=== PATIENT | female | born 1980 | race African-American/Black ===

== ENCOUNTER 2024-11-18 23:56 | Emergency (ER) | payer OTHER, SELFPAY ==
--- NOTE | ~2024-11-18 | XR_ITS ---
CLINICAL HISTORY: cough EXAM: Two views of the chest. COMPARISON: None FINDINGS: Normal cardiac, mediastinal, and hilar contours. Normal heart size. No pleural effusion or pneumothorax. Lungs are clear. No acute bone finding. IMPRESSION: 1. No acute cardiopulmonary process demonstrated. This document has been electronically signed by: Michael Paula MD on 11/19/2024 01:25:00
--- NOTE | 2024-11-19 | ECG_ITS ---
Test Reason : CP Blood Pressure : */* mmHG Vent. Rate : 71 BPM Atrial Rate : 71 BPM P-R Int : 156 ms QRS Dur : 80 ms QT Int : 380 ms P-R-T Axes : 0 33 -13 degrees QTcB Int : 412 ms Normal sinus rhythm Normal ECG No previous ECGs available Referred By: Generic ED Physician Electronically Signed By: Pedro Elias
[2024-11-19 00:28] VITALS: BP 99/68; PULSE 76; RESP 18; TEMP 36.9; O2SAT 99; BMI 27.1
[2024-11-19 00:58] LABS: IDNOW Serial# 55D5AD1C; Strep A Nucleic Acid Negative (Negative)
[2024-11-19 01:24] LABS: Resp Syncy Virus RNA Qual PCR NEGATIVE (Negative); SARS COV2 PCR INHOUSE NEGATIVE (Negative)
--- NOTE | 2024-11-19 04:47 | ED_ITS ---
HPI - URI/Sore Throat General Chief Complaint: Upper Respiratory Symptoms Stated Complaint: Cough Time Seen by Provider: 11/19/24 04:37 Source: patient Mode of arrival: ambulatory Limitations: no limitations History of Present Illness ED Provider: Dr. Bertha Gavin HPI Narrative: Patient comes to the emergency room complaining cough, sore throat, chest pain with coughing. Patient reports sick contacts at work, denies fever and chills Related Data Allergies Allergy/AdvReac Type Severity Reaction Status Date / Time No Known Allergies Allergy Verified 11/19/24 00:31 Review of Systems Review of Systems: Constitutional : No Weight loss, No Fever, No Chills, No Night Sweats, No Fatigue, No Malaise ENT/Mouth : No Hearing loss, No Ear Pain, No Nasal Congestion, No Sinus Pain, No Hoarseness, complaining of sore throat, No Rhinorrhea, No Swallowing Difficulty Eyes: No Eye Pain, No Swelling, No Redness, No Foreign Body, No Discharge, No Vision Changes Cardiovascular : No Chest Pain, No SOB, No Dyspnea on Exertion, No Orthopnea, No Edema, No Palpitations Respiratory : Complaining of dry cough, no wheezing, no shortness of breath Gastrointestinal : No Nausea, No Vomiting, No Diarrhea, No Constipation, No abdominal Pain, No Hematochezia, No Melena Genitourinary : no irregular bleeding, No Dysuria, No Urinary Frequency, No Hematuria, No Urinary Incontinence, No Urgency, No Flank Pain, No Urinary Flow Changes, No Hesitancy Musculoskeletal : No joint pain, No Myalgias, No Joint Swelling Skin : No Skin Lesions, No rash Neuro : No Weakness, No Numbness, No Paresthesias, No Loss of Consciousness, No Dizziness, No Headache Psych : No Anxiety/Panic, No Depression, No SI/HI/AH/VH, No Social Issues, Heme/Lymph: No Bruising, No Bleeding,No Lymphadenopathy Endocrine : No Polyuria, No Polydipsia, No Temperature Intolerance Physical Exam Exam: Exam: Appearance: Alert. Oriented X3. No acute distress. Well-appearing Eyes: Pupils equal, round and reactive to light. ENT: Pharynx normal, not erythematous, no abscesses or exudates, uvula midline Neck: Normal inspection. Neck supple. No lymph nodes noted. No crepitus CVS: Normal heart rate and rhythm. Pulses normal. Normal S1 and S2 Respiratory: No respiratory distress. Breath sounds normal. No Wheezing. No rales Abdomen: Soft and nontender. No rigidity. No distention. Skin: Skin warm and dry. Normal skin color. Normal skin turgor. Extremities: No lower extremity edema. No Lacerations. No Rash Neuro: Oriented X 3. No motor deficit. No sensory deficit. Moving all extremities. No slurred speech. CN 2 through 12 grossly intact Psych: calm, cooperative, normal affect Vital Signs: Vital Signs: Last Vital Signs Temp 98.5 F 11/19/24 00:28 Pulse 76 11/19/24 00:28 Resp 18 11/19/24 00:28 BP 99/68 11/19/24 00:28 Pulse Ox 99 11/19/24 00:28 O2 Del Method Room Air 11/19/24 00:28 BMI result Body Mass Index 27.1 Medical Decision Making Medical Decision Making [facility] Narrative: Patient was given 1 dose of p.o. Decadron to help her with the symptoms. Patient likely has viral pharyngitis My interpretation of labs: Negative for strep, influenza, RSV and COVID Chest x-ray does not show any acute abnormality EKG: Normal sinus rhythm, heart rate 71, no ST segment depression or elevation, no T-wave inversion, QTC 412 Differential Diagnosis Differential Diagnoses: The differential diagnosis associated with the presentation includes (As above) Lab Data [facility] Lab Attestation statement: I reviewed the patient's lab results. Labs: Lab Results 11/19/24 Range/Units 00:43 Influenza Type A (PCR) NEGATIVE (Negative) Influenza Type B (PCR) NEGATIVE (Negative) RSV RNA Qual (PCR) NEGATIVE (Negative) SARS-CoV-2 RNA (RT-PCR) NEGATIVE (Negative) S. pyogenes GrpA TRAVON Negative (Negative) Independent Interpretation I performed an independent interpretation of an: Plain X-Ray Radiology Impression Discussion of test interpretation with radiology: I have reviewed the radiologist's reading. Radiologist Impression: Normal cardiac, mediastinal, and hilar contours. Normal heart size. No pleural effusion or pneumothorax. Lungs are clear. No acute bone finding. Discharge Plan Discharge Clinical Impression: Upper respiratory infection Patient Disposition: Home, Self-Care Print Language: Uzbek
[2024-11-19 05:00] VITALS: BP 99/68; PULSE 76; RESP 18; TEMP 36.9; O2SAT 99
--- OUTSIDE RECORDS SUMMARY | 2024-11-19 05:12 | XMS_ITS | Clinical Summary ---
Author Organization [facility] Address [address] [place] [address] Phone Care Team Providers Care Infrastructure Solutions Architect Name Role Phone Dre, Trice Davenport [facility] Primary Care Provi chang Allergies Active Allergy Reactions Criticality Noted Date Comments Levonorgestrel-Ethinyl Estrad 2019 Medications norethindrone (ARIADNA,CAROL,H EATHER,MICRONOR ) 0.35 mg tablet Take 1 tablet (0.35 mg total) by mouth 1 (one) time each day. For 360 days 11/08/2019 Active ibuprofen (ADVIL,MOTRIN) 400 mg tablet Take 1 tablet (400 mg total) by mouth every 6 (six) hours if needed. Active hydrOXYzine pamoate (VISTARIL) 25 mg capsule Take 1 capsule (25 mg total) by mouth. 12/10/2023 Active cholecalciferol (VITAMIN D-3) 25 mcg (1,000 unit) tablet Take 1 tablet (1,000 Units total) by mouth. 12/06/2023 Active cetirizine (ZyrTEC) 10 mg tablet Take 1 tablet (10 mg total) by mouth. 12/02/2023 Active norethindrone (ARIADNA,CAROL,H EATHER,MICRONOR ) 0.35 mg tablet Take 1 tablet (0.35 mg total) by mouth 1 (one) time each day. 90 tablet 3 06/22/2024 Active Active Problems Problem Noted Date Diagnosed Date ASCUS with positive high risk HPV cervical 12/02 Overview (03/15/2024): Colpo neg 11/2019 Situational anxiety 11/25/2019 Beta thalassemia minor 10/18/2016 Marijuana use 02/17/2015 Chronic low back pain 11/23/2014 Immunizations Name Administration Dates Next Due Hepatitis A-Hepatitis B Adult (Twinrix) 18yo and older 2001 Influenza trivalent, 0.5mL, preservative free (Fluarix; FluLaval; Fluzone) ages 6mo and older (Afluria) 3 years and older 02/17/2015 Tdap Tetanus diptheria acell ular pertussis (Boostrix; Adacel) 7yo and older 12/02/2023 Surgical History Surgery Date Site/Laterality Comments OTHER SURGICAL HISTORY PROCEDURE: DENIES PREVIOUS SURGERY Medical History Medical History Date Comments Patient denies medical problems DX:Patient denies medical problems Family History Medical History Relation Name Comments Other: trauma related Father Breast cancer Mother Diabetes Mother Hypertension Mother Breast cancer Mother's Sister Other: autism Mother's side 1 nephew Breast cancer Mother's side 2 Aunt Mothers aun t Colon cancer Neg Hx Ovarian cancer Neg Hx Uterine cancer Neg Hx Relation Name Status Comments Brother Alive Father Maternal Grandfather Maternal Grandmother Mother Alive Mother's Sister Alive Mother's side 1 Mother's side 2 Aunt Paternal Grandfather Paternal Grandmother Sister Alive Social History Tobacco Use Types Packs/Day Years Used Date Smoking Tobacco: Some Days Smokeless Tobacco: Never Alcohol Use Standard Drinks/Week Comments Yes 0 (1 standard drink = 0.6 oz pur e alcohol) Comments No Sex and Gender Information Value Date Recorded Sex Assigned at Not on file Legal Sex Female 4:23 AM EST Gender Identity Not on file Sexual Orientation Not on file Obstetrics History Last Filed Vital Signs Vital Sign Reading Time Taken Comments Blood Pressure 123/78 06/22/2024 10:58 AM EDT Pulse 64 06/22/2024 10:58 AM EDT Temperature - - Respiratory Rate - - Oxygen Saturation - - Inhaled Oxygen Concentration - - Weight 81.6 kg (180 lb) 07/02/2024 11:02 AM EDT Height 172.7 cm (5' 8 ) 07/02/2024 11:02 AM EDT Body Mass Index 27.37 07/02/2024 11:02 AM EDT Plan of Treatment Upcoming Encounters Date Type Department Care Team (Late st Contact Info) Description 01/03/2025 1:00 PM EDT [facility]ointment [facility] [address] [id number] Health Maintenance Due Date Last Done Comments Pneumococcal Vaccine: Pediatrics (0 to 5 Years) and At-Risk Patients (6 to 49 Years) (1 of 2 - PCV) 2001 Hepatitis B Vaccines (2 of 3 - Hep B Twinrix 3-dose series) 05/13/2001 2001 Social Influencers of Health Screening 03/10/2022 COVID-19 Vaccine (1 - 2023-2 5 season) 2023 Depression Screening 04/07/2024 Cholesterol Screening (Lipid Panel) 11/24/2024 11/25/2019 Influenza Vaccine (#1) 2024 4, 03/09/2018, 02/17/2015 Breast Cancer Screening 07/02/2026 07/03/19 25, 12/12/2023 Cervical Cancer Screening: HPV 06/22/2029 0 06/22/2024, 11/08/2019 DTaP,Tdap,and Td Vaccines (2 - Td or Tdap) 12/01/2033 12/02/2023 Hepatitis A Vaccines Aged Out 2001 No long er eligible based on patient's age to complete this topic HIV Screening Completed 06/22/2024, 11/08/2019 Hepatitis C Screening Completed 06/22/2024 HIB Vaccines Aged Out No longer eligi ble based on patient's age to complete this topic HPV Vaccines Aged Out No longer eligi ble based on patient's age to complete this topic IPV Vaccines Aged Out No longer eligi ble based on patient's age to complete this topic MMR Vaccines Aged Out No longer eligi ble based on patient's age to complete this topic Meningococcal ACWY Vaccine Aged Out N o longer eligible based on patient's age to complete this topic Meningococcal B Vaccine Aged Out No l onger eligible based on patient's age to complete this topic RSV Immunization Patients Under 20 months Aged Out No longer eligible b ased on patient's age to complete this topic Varicella Vaccines Aged Out No longer eligible based on patient's age to complete this topic Procedures Procedure Name Priority Date/Time Associated Diagnosis Comments MG MAMMO DIGITAL DIAGNOSTIC LEFT Routine 07/02/2024 11:37 AM EDT Abnormality of left breast on screening mammogram HEPATITIS C ANTIBODY Routine 06/22/2024 11:30 AM EDT Encounter for screening for viral disease HIV 1, 2 ANTIBODY, P24 ANTIGEN WITH REFLEX TO DIFFERENTIATION Routine 06/22/2024 11:30 AM EDT Encounter for screening for viral disease HPV WITH REFLEX GENOTYPE Routine 06/22/2024 11:21 AM EDT Encounter for annual physical examination excluding gynecological examination in a patient older than 17 years LIPID PANEL Routine 11/25/2019 from Last 3 Months or Most Recently Relevant to Health Maintenance Results * MG Mammo Digital Diagnostic Left (07/02/2024 11:37 AM EDT) Anatomical Region Laterality Modality Breast Left Mammography 07/02/2024 11:1 2 AM EDT Impressions 07/02/2024 11:22 AM EDT Decreased size and conspicuity of the asymmetry posteriorly in the left breast in the nipple line, seen on MLO projection only, strongly indicating benignity. Bilateral mammography in 6 months, which will serve as additional short-term follow-up of left breast and annual mammography of the right breast, is recommended. BI-RADS CATEGORY: 3 - PROBABLY BENIGN RECOMMENDATION: Short Interval Follow-up is recommended for bilateral breasts in 6 months. Mammo Location: [facility], [facility], [address] [place] [address] -------- FINAL REPORT -------- Dictated By: Jhonny Vazquez Dictated Date: 07/02/2024 11:12 ET Assigned Physician: Jhonny Vazquez Reviewed and Electronically Signed By: Jhonny Vazquez Signed Date: 07/02/2024 11:22 ET Workstation ID: [id number] Transcribed By: Self Edit Transcribed Date: 07/02/2024 11:12 ET Narrative 07/02/2024 11:22 AM EDT CLINICAL: The patient is a 44 years Female. Screening mammography performed 12/12/2023, as well as on supplementary imaging performed 12/30/2023, demonstrated a 12 mm diameter asymmetry posteriorly in the left breast in the nipple line, seen on MLO projection only. The patient now presents for supplementary imaging. COMPARISON: 12/30/2023 and 12/12/2023 TECHNIQUE: Full-field digital mammography of the left breast consisting of tomosynthesis in MLO and CC projection is performed in the [employer] 2000-D unit. Computer aided detection utilizing the iCAD system was utilized. FINDINGS: The breasts are again seen to be composed of a combination of fatty and very dense fibroglandular elements. The asymmetry posteriorly in the left breast in the nipple line seen on MLO projection only, is less conspicuous than on prior studies. There is no cluster of microcalcifications, mass, or area of architectural distortion. There is no skin thickening or nipple retraction. TISSUE DENSITY: There are scattered areas of fibroglandular density. (BI-RADS category B) Procedure Note Jhonny Vazquez MD - 07/02/2024 CLINICAL: The patient is a 44 years Female. Screening mammographyperformed 12/12/2023, as well as on supplementary imaging performed12/30/2023, demonstrated a 12 mm diameter asymmetry posteriorly in the leftbreast in the nipple line, seen on MLO projection only. The patient nowpresents for supplementary imaging. COMPARISON: 12/30/2023 and 12/12/2023 TECHNIQUE: Full-field digital mammography of the left breast consisting oftomosynthesis in MLO and CC projection is performed in the [id number] unit. Computer aided detection utilizing the iCAD system wasutilized. FINDINGS: The breasts are again seen to be composed of a combination offatty and very dense fibroglandular elements. The asymmetry posteriorlyin the left breast in the nipple line seen on MLO projection only, is lessconspicuous than on prior studies. There is no cluster ofmicrocalcifications, mass, or area of architectural distortion. There isno skin thickening or nipple retraction. TISSUE DENSITY: There are scattered areas of fibroglandular density.(BI-RADS category B) IMPRESSION: Decreased size and conspicuity of the asymmetry posteriorly in the leftbreast in the nipple line, seen on MLO projection only, stronglyindicating benignity. Bilateral mammography in 6 months, which will serveas additional short-term follow-up of left breast and annual mammographyof the right breast, is recommended. BI-RADS CATEGORY: 3 - PROBABLY BENIGN RECOMMENDATION: Short Interval Follow-up is recommended for bilateral breasts in 6 months. Mammo Location: [facility], [facility], [address] [place] [id number] -------- FINAL REPORT -------- Dictated By: Jhonny Vazquez Dictated Date: 07/02/2024 11:12 ET Assigned Physician: Jhonny Vazquez Reviewed and Electronically Signed By: Jhonny Vazquez Signed Date: 07/02/2024 11:22 ET Workstation ID: [id number] Transcribed By: Self Edit Transcribed Date: 07/02/2024 11:12 ET Trice Erickson TELEPHONE SOLICITOR IMG BI PROCEDURES F inal Result * Hepatitis C antibody (06/22/2024 11:30 AM EDT) [facility] Hepatitis C Antibody Negative Negative LAB CHEMISTRY METHOD 06/22/2024 3:38 PM EDT [facility] Blood Venous blood specimen / Unknown Venipuncture / Unknown 06/22/2024 11:30 AM EDT 06/22/2024 11:30 AM EDT us [facility] LAB BLOOD ORDERABLES Final Re sult [facility] [address] [place] [address], [place] [phone] * HIV 1,2 antibody, p24 antigen with reflex to differentiation (06/22/2024 11:30 AM EDT) [facility] HIV Combo AB/AG Negative Negative LAB CHEMISTRY METHOD 06/22/2024 3:39 PM EDT [facility] Blood Venous blood specimen / Unknown Venipuncture / Unknown 06/22/2024 11:30 AM EDT 06/22/2024 11:30 AM EDT Narrative [facility] - 06/22/2024 3:39 PM EDT This assay is a 4th generation assay allowing for earlier detection of HIV infection by detecting the presence of the HIV-1 p24 antigen as well as the traditional antibodies to HIV type 1 (including group O) and type 2. Use of a 4th generation assay is the current CDC recommendation for HIV screening. [facility] LAB BLOOD ORDERABLES Final Re sult Performing Organization Address City/[facility]/ZIP Co de Phone Number [facility] [address] [place] [address], * HPV with reflex genotype (06/22/2024 11:21 AM EDT) [facility] HPV Negative Negative LAB MICROBIOLOGY METHOD 06/23/2024 2:08 PM EDT [facility] Brushing Cervix uteri structure / Unknown 06/22/2024 11:21 AM EDT 06/23/2024 7:35 AM EDT [facility] MOLECULAR DIAGNOSTICS ORD ERABLES Final Result [facility] [address] [place] [address], [place] [phone] * Lipid panel (11/25/2019) [facility] LDL/HDL Ratio 3 0 - 4 Triglycerides 100 0 - 150 mg/dL Cholesterol 148 0 - 200 mg/dL HDL 55 >=40 mg/dL LDL Cholesterol 73 0 - 100 mg/dL Blood Venous blood specimen / Unknown [facility] Provider LAB BLOOD ORDERABLES Mariela l Result from Last 3 Months or Most Recently Relevant to Health Maintenance Insurance [facility] Care Teams Infrastructure Solutions Architect Relationship Specialty Start Date End Date Trice Erickson FNP PCP - General Family Medicine 07/02/24
== END 2024-11-19 05:12 | disposition home or self-care (01) ==
LOC: HO.ED 11-19 05:11
PROVIDERS: Emergency Provider Emergency Medicine
DX: J06.9 Acute upper respiratory infection, unspecified (principal); R05.9 Cough, unspecified; R07.89 Other chest pain; Z03.818 Encounter for observation for suspected exposure to other biological agents ruled out
CPT/HCPCS: 71046; 87637; 87651; 93005; 99283; J1100

== ENCOUNTER → 2024-11-19 00:33 | Outpatient (BNV) | payer OTHER, SELFPAY | PROVIDERS: Emergency Provider Emergency Medicine; Visit Provider Internal Medicine Cardiovascular Disease | DX: R07.9 Chest pain, unspecified (principal) | CPT/HCPCS: 93010 ==

== ENCOUNTER → 2024-11-19 23:59 | Outpatient (BNV) | payer OTHER, SELFPAY | PROVIDERS: Visit Provider Radiology Diagnostic Radiology | DX: R05.9 Cough, unspecified (principal) | CPT/HCPCS: 71046 ==